=== PATIENT | female | born 1945 | race Caucasian/White ===

== ENCOUNTER 2019-10-17 14:01 | Inpatient (IN) | payer MEDICARE, OTHER ==
[2019-10-17] MEDS ORDERED: Sodium Chloride 0.9% 1000 ML 1,000 ML IV STA (14:16)
[2019-10-17] MEDS ORDERED: Hydromorphone 1 mg/ml Ampule IV ONE (14:16)
[2019-10-17] MEDS ORDERED: Zofran 4 MG/2 ML VIAL IV ONE (14:16)
--- NOTE | 2019-10-17 14:16 | ERPHSYRPT ---
- History of Present Illness Time Seen by Provider: 10/17/19 14:12 Historian: patient, EMS Exam Limitations: no limitations Patient Subjective Stated Complaint: PT states "My stomach hurt last night and I vomited a few times. I do not hurt much now except when you pushed on it." Triage Nursing Assessment: Pt presented alert and oriented X 3, skin pwd. Pt able to speak in clear full sentences pt in no apaprent respiratory distress. Pt is tender in the right upper and right lower quadrant. Physician History: This is a 74-year-old diabetic obese white female with history of hypertension who is a patient of Dr. Barrios and presents to the emergency department via EMS with abdominal pain that began last night and associated multiple episodes of vomiting earlier today. Patient currently says that the pain is not bad unless you push on her abdomen. Patient has had a cholecystectomy and an appendectomy in the past. Her tubes ovaries and uterus are still in place per her report. Patient denies chest pain and she denies shortness of breath Timing/Duration: yesterday Activities at Onset: none Quality: sharpness, stabbing Abdominal Pain Onset Location: RUQ, RLQ Pain Radiation: no radiation Severity of Pain-Max: moderate Severity of Pain-Current: mild (But worse when you push on her abdomen) Modifying Factors: Improves With: palpation, vomiting (Worsens) Associated Symptoms: loss of appetite, nausea, vomiting, No chest pain, No diarrhea, No fever/chills, No shortness of breath Previous symptoms: no prior history Allergies/Adverse Reactions: No Known Drug Allergies Allergy (Verified 10/17/19 14:10) Home Medications: Amlodipine Besylate [Norvasc] 10 mg PO DAILY 10/17/19 [History] Losartan/Hydrochlorothiazide [Losartan-Hctz 50-12.5 mg Tab] 1 each PO DAILY 10/17/19 [History] Metformin HCl 500 mg [Glucophage 500 MG] 500 mg PO BIDWM 10/17/19 [History] Hx Tetanus, Diphtheria Vaccination/Date Given: No Hx Influenza Vaccination/Date Given: Yes Hx Pneumococcal Vaccination/Date Given: Yes Immunizations Up to Date: Yes Travel Risk - International Travel Have you traveled outside of the country in past 3 weeks: No - Coronavirus Screening Are you exhibiting any of the following symptoms?: No Close contact with a COVID-19 positive Pt in past 14-21 Days: No - Review of Systems Constitutional: No Symptoms Eyes: No Symptoms Ears, Nose, & Throat: No Symptoms Respiratory: No Symptoms Cardiac: No Symptoms Abdominal/Gastrointestinal: Abdominal Pain, Nausea, Vomiting Genitourinary Symptoms: No Symptoms Musculoskeletal: No Symptoms Skin: No Symptoms Neurological: No Symptoms Psychological: No Symptoms Endocrine: No Symptoms Hematologic/Lymphatic: No Symptoms Immunological/Allergic: No Symptoms All Other Systems: Reviewed and Negative - Past Medical History Pertinent Past Medical History: Yes Neurological History: No Pertinent History ENT History: No Pertinent History Cardiac History: No Pertinent History Respiratory History: No Pertinent History Endocrine Medical History: Diabetes Type II Musculoskeletal History: Arthritis GI Medical History: Gallbladder Disease History: No Pertinent History Psycho-Social History: No Pertinent History Female Reproductive Disorders: No Pertinent History - Past Surgical History Past Surgical History: Yes Neuro Surgical History: No Pertinent History Cardiac: No Pertinent History Respiratory: No Pertinent History Gastrointestinal: Appendectomy, Cholecystectomy Genitourinary: No Pertinent History Musculoskeletal: No Pertinent History Female Surgical History: No Pertinent History Other Surgical History: elizabeth. appi. neck - Social History Smoking Status: Former smoker Exposure to second hand smoke: Yes Drug Use: none Patient Lives Alone: No - Female History Hx Now: No - Nursing Vital Signs Nursing Vital Signs: Initial Vital Signs Temperature 98.3 F 10/17/19 14:02 Pulse Rate 79 10/17/19 14:02 Respiratory Rate 20 10/17/19 14:02 Blood Pressure 159/80 10/17/19 14:02 O2 Sat by Pulse Oximetry 97 10/17/19 14:02 Pain Scale Pain Intensity 0 - Physical Exam General Appearance: mild distress, alert, anxiety, obese Eye Exam: PERRL/EOMI, eyes nml inspection Ears, Nose, Throat Exam: normal ENT inspection, moist mucous membranes Neck Exam: normal inspection, non-tender, supple, full range of motion Respiratory Exam: normal breath sounds, lungs clear, airway intact, No chest tenderness, No respiratory distress Cardiovascular Exam: regular rate/rhythm, normal heart sounds, normal peripheral pulses Gastrointestinal/Abdomen Exam: soft, normal bowel sounds, tenderness (Right side of her abdomen), guarding, No rebound Pelvic Exam: not done Rectal Exam: not done Back Exam: normal inspection, normal range of motion, No CVA tenderness, No vertebral tenderness Extremity Exam: normal inspection, normal range of motion, pelvis stable Neurologic Exam: alert, oriented x 3, cooperative, manager qa II-XII nml as tested Skin Exam: normal color, warm, dry Lymphatic Exam: No adenopathy SpO2 Interpretation: normal SpO2: 97 O2 Delivery: Room Air - Course Nursing assessment & vital signs reviewed: Yes EKG Interpreted by Me: RATE (76), Sinus Rhythm, Left Angora Deviation, NORMAL INTERVALS, NORMAL QRS Ordered Tests: Active Orders 24 hr Category Date Time Status EKG-ER Only STAT Care 10/17/19 14:16 Active IV Insertion STAT Care 10/17/19 14:16 Active ABDOMEN AND PELVIS W/0 CONTRAS [CT] Stat Exams 10/17/19 14:17 Completed AMYLASE Stat Lab 10/17/19 14:20 Completed CBC W DIFF Stat Lab 10/17/19 14:20 Completed CMP Stat Lab 10/17/19 14:20 Completed CULTURE,URINE Stat Lab 10/17/19 15:41 Received LIPASE Stat Lab 10/17/19 14:20 Completed Lactic Acid Stat Lab 10/17/19 14:48 Completed Lactic Acid Stat Lab 10/17/19 16:52 Received TROPONIN Q3H Lab 10/17/19 14:20 Completed TROPONIN Q3H Lab 10/17/19 17:30 Ordered TROPONIN Q3H Lab 10/17/19 20:30 Ordered TROPONIN Q3H Lab 10/17/19 23:30 Ordered TROPONIN Q3H Lab 10/18/19 02:30 Ordered UA W/RFX UR CULTURE Stat Lab 10/17/19 15:41 Completed Transfer Order Routine Transfer 10/17/19 Ordered Medication Summary Generic Name Dose Route Start Last Admin Trade Name Freq PRN Reason Stop Dose Admin Ceftriaxone Sodium/Dextrose 1 g in 50 mls @ 100 mls/hr 10/17/19 17:07 Rocephin 1 Gm-D5w 50 Ml Bag IV 10/17/19 17:36 STAT STA Discontinued Medications Generic Name Dose Route Start Last Admin Trade Name Freq PRN Reason Stop Dose Admin Hydromorphone HCl 0.5 mg 10/17/19 14:16 10/17/19 14:38 Hydromorphone 1 Mg/Ml Ampule IV 10/17/19 14:17 0.5 mg STAT ONE Administration Hydromorphone HCl Confirm 10/17/19 14:37 Hydromorphone 1 Mg/Ml Ampule Administered 10/17/19 14:38 Dose 1 mg .ROUTE .STK-MED ONE Sodium Chloride 1,000 mls @ 999 mls/hr 10/17/19 14:16 10/17/19 16:22 Sodium Chloride 0.9% 1000 Ml IV 10/17/19 15:16 Infused .Q1H1M STA Infusion Sodium Chloride Confirm 10/17/19 14:37 Sodium Chloride 0.9% 1000 Ml Administered 10/17/19 14:38 Dose 1,000 mls @ ud .ROUTE .STK-MED ONE Sodium Chloride Confirm 10/17/19 16:52 Sodium Chloride 0.9% 1000 Ml Administered 10/17/19 16:53 Dose 1,000 mls @ ud .ROUTE .STK-MED ONE Ondansetron HCl 4 mg 10/17/19 14:16 10/17/19 14:38 Zofran 4 Mg/2 Ml Vial IV 10/17/19 14:17 4 mg STAT ONE Administration Ondansetron HCl Confirm 10/17/19 14:36 Zofran 4 Mg/2 Ml Vial Administered 10/17/19 14:37 Dose 4 mg .ROUTE .STK-MED ONE Lab/Rad Data: Laboratory Result Diagrams 10/17/19 14:20 10/17/19 14:20 Laboratory Results 10/17/19 10/17/19 10/17/19 Range/Units 15:41 14:48 14:20 WBC (4.0-10.5) K/mm3 RBC (4.1-5.4) M/mm3 Hgb (12.0-16.0) gm/dl Hct (35-47) % MCV (78-100) fl MCH (26-32) pg MCHC (32-36) g/dl RDW (11.5-14.0) % Plt Count (150-450) K/mm3 MPV (7.5-11.0) fl Gran % (36.0-66.0) % Eos # (Auto) (0-0.5) Absolute Lymphs (auto) (1.0-4.6) Absolute Monos (auto) (0.0-1.3) Lymphocytes % (24.0-44.0) % Monocytes % (0.0-12.0) % Eosinophils % (0.00-5.0) % Basophils % (0.0-0.4) % Absolute Granulocytes (1.4-6.9) Basophils # (0-0.4) Sodium (137-145) mmol/L Potassium (3.5-5.1) mmol/L Chloride (98-107) mmol/L Carbon Dioxide (22-30) mmol/L Anion Gap (5-15) MEQ/L BUN (7-17) mg/dL Creatinine (0.52-1.04) mg/dL Estimated GFR ML/MIN Glucose (74-106) mg/dL Lactic Acid 2.7 H (0.4-2.0) Calcium (8.4-10.2) mg/dL Total Bilirubin (0.2-1.3) mg/dL AST (14-36) U/L ALT (0-35) U/L Alkaline Phosphatase (38-126) U/L Troponin I < 0.012 (0.000-0.034) ng/mL Serum Total Protein (6.3-8.2) g/dL Albumin (3.5-5.0) g/dL Amylase (30-110) U/L Lipase (23-300) U/L Urine Color POPEYE (YELLOW) Urine Appearance SLIGHTLY CLOUDY (CLEAR) Urine pH 6.0 (5-6) Ur Specific [place] 1.021 (1.005-1.025) Urine Protein NEGATIVE (Negative) Urine Ketones SMALL (NEGATIVE) Urine Blood NEGATIVE (0-5) Bear/ul Urine Nitrite POSITIVE (NEGATIVE) Urine Bilirubin NEGATIVE (NEGATIVE) Urine Urobilinogen 2 (0-1) mg/dL Ur Leukocyte Esterase TRACE (NEGATIVE) Urine WBC (Auto) 6-10 (0-5) /HPF Urine RBC (Auto) 0-2 (0-2) /HPF U Epithel Cells (Auto) RARE (FEW) /HPF Urine Bacteria (Auto) PACKED (NEGATIVE) /HPF Urine Mucus (Auto) MANY (NEGATIVE) /HPF Urine Culture Reflexed YES (NO) Urine Glucose NEGATIVE (NEGATIVE) mg/dL Slides for Path Review 10/17/19 10/17/19 Range/Units 14:20 14:20 WBC 12.1 H (4.0-10.5) K/mm3 RBC 5.76 H (4.1-5.4) M/mm3 Hgb 16.6 H (12.0-16.0) gm/dl Hct 49.4 H (35-47) % MCV 85.8 (78-100) fl MCH 28.8 (26-32) pg MCHC 33.6 (32-36) g/dl RDW 14.8 H (11.5-14.0) % Plt Count 342 (150-450) K/mm3 MPV 11.4 H (7.5-11.0) fl Gran % 93.0 H (36.0-66.0) % Eos # (Auto) 0.02 (0-0.5) Absolute Lymphs (auto) 0.41 L (1.0-4.6) Absolute Monos (auto) 0.36 (0.0-1.3) Lymphocytes % 3.4 L (24.0-44.0) % Monocytes % 3.0 (0.0-12.0) % Eosinophils % 0.2 (0.00-5.0) % Basophils % 0.4 (0.0-0.4) % Absolute Granulocytes 11.22 H (1.4-6.9) Basophils # 0.05 (0-0.4) Sodium 139 (137-145) mmol/L Potassium 4.0 (3.5-5.1) mmol/L Chloride 104 (98-107) mmol/L Carbon Dioxide 25 (22-30) mmol/L Anion Gap 14.8 (5-15) MEQ/L BUN 18 H (7-17) mg/dL Creatinine 0.66 (0.52-1.04) mg/dL Estimated GFR > 60.0 ML/MIN Glucose 140 H (74-106) mg/dL Lactic Acid (0.4-2.0) Calcium 10.6 H (8.4-10.2) mg/dL Total Bilirubin 1.30 (0.2-1.3) mg/dL AST 30 (14-36) U/L ALT 16 (0-35) U/L Alkaline Phosphatase 77 (38-126) U/L Troponin I (0.000-0.034) ng/mL Serum Total Protein 7.3 (6.3-8.2) g/dL Albumin 4.3 (3.5-5.0) g/dL Amylase 121 H (30-110) U/L Lipase 109 (23-300) U/L Urine Color (YELLOW) Urine Appearance (CLEAR) Urine pH (5-6) Ur Specific [place] (1.005-1.025) Urine Protein (Negative) Urine Ketones (NEGATIVE) Urine Blood (0-5) Bear/ul Urine Nitrite (NEGATIVE) Urine Bilirubin (NEGATIVE) Urine Urobilinogen (0-1) mg/dL Ur Leukocyte Esterase (NEGATIVE) Urine WBC (Auto) (0-5) /HPF Urine RBC (Auto) (0-2) /HPF U Epithel Cells (Auto) (FEW) /HPF Urine Bacteria (Auto) (NEGATIVE) /HPF Urine Mucus (Auto) (NEGATIVE) /HPF Urine Culture Reflexed (NO) Urine Glucose (NEGATIVE) mg/dL Slides for Path Review YES - Progress Progress: improved, pain not gone completely, re-examined Progress Note: 10/17/19 15:17 CAT scan of the abdomen and pelvis suspects a distal small bowel bezoar producing partial obstruction. It measures 4 cm x 7 cm. In addition there is a well-circumscribed heterogeneous mass with chunky calcifications abutting the left lobe of the liver. It measures 3 cm x 4.9 cm x 4.9 cm. 10/17/19 17:[address] Tripp, who is covering for Dr. Quigley. I reviewed the patient history, condition, EKG results, laboratory results, and results of the CAT scan. The patient has both a urinary tract infection and a partial distal small bowel obstruction. Patient will be admitted into the hospital and given IV hydration, iv antibiotics, pain control, nausea control and obtain a general surgical consultation. Discussed with : Zack Counseled pt/family regarding: lab results, diagnosis, rad results - Departure Departure Disposition: In-patient Admission Clinical Impression: Small bowel obstruction, partial, UTI (urinary tract infection) Condition: Stable Critical Care Time: No Referrals: JONAH CANTOR [Primary Care Provider] -
[2019-10-17] MEDS ORDERED: Zofran 4 MG/2 ML VIAL ONE (14:36)
[2019-10-17] MEDS ORDERED: Hydromorphone 1 mg/ml Ampule ONE (14:37)
[2019-10-17] MEDS ORDERED: Sodium Chloride 0.9% 1000 ML 0 ML ONE (14:37)
[2019-10-17 14:41] LABS: Absolute Neutrophil Ct (ANC) 11.22 (1.4-6.9); BASOPHIL % 0.4 % (0.0-0.4); Basophil (Absolute #) 0.05 (0-0.4); Eosinophil % 0.2 % (0.00-5.0); Eosinophil (Absolute #) 0.02 (0-0.5); Hematocrit 49.4 % (35-47); Hemoglobin 16.6 gm/dl (12.0-16.0); Lymphocyte (Absolute #) 0.41 (1.0-4.6); Lymphocytes % 3.4 % (24.0-44.0); Mean Cell Volume 85.8 fl (78-100); Mean Corpuscular Hemoglobin 28.8 pg (26-32); Mean Corpuscular Hgb Concent. 33.6 g/dl (32-36); Mean Platelet Volume 11.4 fl (7.5-11.0); Monocyte (Absolute #) 0.36 (0.0-1.3); Platelet Count 342 K/mm3 (150-450); Red Blood Count 5.76 M/mm3 (4.1-5.4); Red Cell Distribution Width 14.8 % (11.5-14.0); White Blood Count 12.1 K/mm3 (4.0-10.5)
[2019-10-17 15:04] LABS: Slide Review 1 YES
--- NOTE | 2019-10-17 15:07 | XRAY ---
Indication: Right lower quadrant pain and nausea. Multiple contiguous axial images obtained through the abdomen and pelvis without contrast as ordered. Comparison: None Lung bases demonstrates minimal bibasilar atelectasis/scarring. Also 8 mm posterior right lower lobe indeterminant noncalcified nodule. No infiltrate or effusion. Heart is not enlarged. Moderate-sized hiatal hernia with fluid distended partial intrathoracic stomach. Noncontrasted stomach and bowel loops are mildly fluid distended. Duodenal and jejunal bowel loops are distended up to 3 cm to the level of the pelvic inlet where there is a intraluminal mass, bezoar in appearance measuring at least 4 x 7 cm in greatest axial dimension. More distal ileal bowel loops are normal in caliber and colon demonstrates normal bowel gas. Above findings favor partial distal small bowel obstruction. No free fluid/air. Minimal sigmoid diverticulosis. Appendectomy and cholecystectomy reported. There is a well-circumscribed heterogeneous mass with chunky calcifications immediately abutting the left lobe of the liver inferiorly measuring 3.4 x 4.9 x 4.9 cm of uncertain etiology. Spleen is enlarged measuring 13.5 cm. Nonobstructing punctate left renal calculus. Small fundal calcified uterine fibroids, largest 8mm. Remaining liver, pancreas, spleen, adrenal glands, kidneys, ureters, bladder, and uterus appear unremarkable for noncontrast exam. Mild scattered aortoiliac calcifications without AAA. Osseous structures demonstrate mild/moderate degenerative changes throughout the thoracolumbar spine and moderate levorotoscoliosis centered at L3-L4. Impression: 1. Suspect distal small bowel bezoar producing partial obstruction. 2. Hiatal hernia with fluid filled partial intrathoracic stomach. 3. Indeterminant heterogeneous mass with chunky calcifications abutting the left lobe of the liver as detailed. Doubt hepatic in etiology. 4. Indeterminate right lower lobe noncalcified pulmonary nodule. 5. Incidental splenomegaly, nonobstructing left renal micro-calculus, sigmoid diverticulosis, calcified uterine fibroids, and chronic bony findings.
[2019-10-17 15:32] LABS: ALBUMIN 4.3 g/dL (3.5-5.0); ALKALINE PHOSPHATASE 77 U/L (38-126); AMYLASE 121 U/L (30-110); ANION GAP 14.8 MEQ/L (5-15); BLOOD UREA NITROGEN 18 mg/dL (7-17); CHLORIDE 104 mmol/L (98-107); Calcium 10.6 mg/dL (8.4-10.2); Carbon Dioxide 25 mmol/L (22-30); Creatinine 1 0.66 mg/dL (0.52-1.04); Glucose 140 mg/dL (74-106); LIPASE 109 U/L (23-300); SGOT/AST 30 U/L (14-36); SGPT/ALT 16 U/L (0-35); SODIUM 139 mmol/L (137-145); Total Protein 7.3 g/dL (6.3-8.2)
[2019-10-17 16:31] LABS: Appearance SLIGHTLY CLOUDY (CLEAR); Bacteria PACKED /HPF (NEGATIVE); Bilirubin NEGATIVE (NEGATIVE); Blood NEGATIVE Ery/ul (0-5); Epithelial Cells RARE /HPF (FEW); Glucose NEGATIVE (NEGATIVE); Ketones SMALL (NEGATIVE); Leukocyte Esterase TRACE (NEGATIVE); Mucus MANY /HPF (NEGATIVE); Nitrite POSITIVE (NEGATIVE); Protein,Urine Dip NEGATIVE (Negative); RBC 0-2 /HPF (0-2); Specific Gravity 1.021 (1.005-1.025); Urobilinogen 2 mg/dL (0-1)
[2019-10-17] MEDS ORDERED: Sodium Chloride 0.9% 1000 ML 1,000 ML ONE (16:52)
[2019-10-17] MEDS ORDERED: ROCEPHIN 1 Gm-D5w 50 ml Bag** 1 G/50 ML IVPB IV STA (17:07)
[2019-10-17] MEDS ORDERED: ROCEPHIN 1 Gm-D5w 50 ml Bag** 1 G/50 ML IVPB IV ONE (17:18)
[2019-10-17] MEDS ORDERED: FEVERALL 650 MG PR PRN (18:13)
[2019-10-17] MEDS: Zofran 4 MG/2 ML VIAL IV PRN (19:53)
[2019-10-17] MEDS: DILAUDID 2 MG INJECTION IV PRN (19:53)
[2019-10-17] MEDS: Sodium Chloride 0.9% 1000 ML 1,000 ML IV SCH (19:55)
[2019-10-18] MEDS: DILAUDID 2 MG INJECTION IV PRN (01:17)
[2019-10-18 04:44] LABS: Absolute Neutrophil Ct (ANC) 10.94 (1.4-6.9); BASOPHIL % 0.6 % (0.0-0.4); Basophil (Absolute #) 0.07 (0-0.4); Eosinophil % 0.3 % (0.00-5.0); Eosinophil (Absolute #) 0.04 (0-0.5); Hemoglobin 13.6 gm/dl (12.0-16.0); Lymphocyte (Absolute #) 0.89 (1.0-4.6); Lymphocytes % 7.1 % (24.0-44.0); Mean Cell Volume 88.2 fl (78-100); Mean Corpuscular Hemoglobin 28.6 pg (26-32); Mean Corpuscular Hgb Concent. 32.4 g/dl (32-36); Mean Platelet Volume 10.3 fl (7.5-11.0); Monocyte (Absolute #) 0.67 (0.0-1.3); Monocytes % 5.3 % (0.0-12.0); Neutrophil % 86.7 % (36.0-66.0); Platelet Count 378 K/mm3 (150-450); Red Blood Count 4.76 M/mm3 (4.1-5.4); Red Cell Distribution Width 14.9 % (11.5-14.0); White Blood Count 12.6 K/mm3 (4.0-10.5)
[2019-10-18] MEDS: Sodium Chloride 0.9% 1000 ML 1,000 ML IV SCH ×2 (04:56→16:56)
[2019-10-18 05:06] LABS: ALKALINE PHOSPHATASE 52 U/L (38-126); ANION GAP 7.9 MEQ/L (5-15); BLOOD UREA NITROGEN 17 mg/dL (7-17); CHLORIDE 109 mmol/L (98-107); Calcium 8.9 mg/dL (8.4-10.2); Carbon Dioxide 25 mmol/L (22-30); Creatinine 1 0.67 mg/dL (0.52-1.04); Glucose 141 mg/dL (74-106); Potassium 4.1 mmol/L (3.5-5.1); SGOT/AST 22 U/L (14-36); SGPT/ALT 17 U/L (0-35); SODIUM 138 mmol/L (137-145); Total Protein 5.6 g/dL (6.3-8.2)
--- NOTE | 2019-10-18 06:04 | PCM.HP ---
History of Present Illness - Chief Complaint Chief Complaint: Partial small bowel obstruction Date: 10/18/19 History of Present Illness: is a 74 year old female that was admitted from the ER yesterday for partial small bowel obstruction UTI and lesion near liver of unknown etiology. Patient reports that on she was eating her normal diet with no changes in appetite or bowel habits. Patient reports on mon after she ate her dinner of chicken and vegetables, she started having some abdominal discomfort. Patient reports that when she woke up yesterday morning she had no appetite at all. She started to experience abdominal pain and multiple episodes of vomiting. Patient denies any diarrhea or constipation at that time. She denies any hx of bowel surgery. She denies any fevers or urinary symptoms. She reports that she still has pain and still does not have much of an appetite. She has never had these type of symptoms before. When discussing patient with ER doctor her reported that patient was not currently vomiting and no NG tube was placed. - Review of Systems Constitutional: No Fever, No Chills, No Fatigue Eyes: No Symptoms Ears, Nose, & Throat: No Symptoms Respiratory: No Cough, No Short Of Breath, No Wheezing Cardiac: No Chest Pain, No Edema Abdominal/Gastrointestinal: Abdominal Pain, Nausea, Vomiting, Appetite Changes, No Diarrhea, No Constipation Genitourinary Symptoms: No Dysuria, No Hematuria Musculoskeletal: No Symptoms Skin: No Symptoms Neurological: No Symptoms Psychological: No Alcohol Abuse, No Drug Abuse, No Anxiety, No Depression Hematologic/Lymphatic: No Anemia Medications & Allergies Home Medications: Home Medication List Amlodipine Besylate [Norvasc] 5 mg PO DAILY 10/17/19 [History Confirmed 10/17/19] Aspirin EC 81 mg [Ecotrin 81 mg] 81 mg PO DAILY 10/17/19 [History Confirmed 10/17/19] Losartan/Hydrochlorothiazide [Losartan-Hctz 100-12.5 mg Tab] 1 each PO DAILY 10/17/19 [History Confirmed 10/17/19] Metformin HCl 500 mg [Glucophage 500 MG] 500 mg PO BIDWM 10/17/19 [History Confirmed 10/17/19] [place]-3 Fatty Acids [[place]-3] 1,000 mg PO DAILY 10/17/19 [History Confirmed 10/17/19] Allergies/Adverse Reactions: Allergies Allergy/AdvReac Type Severity Reaction Status Date / Time No Known Drug Allergies Allergy Verified 10/17/19 14:10 - Past Medical History Past Medical History: Yes Neurological History: No Pertinent History ENT History: No Pertinent History Cardiac History: No Pertinent History Respiratory History: No Pertinent History Endocrine Medical History: Diabetes Type II Musculoskelatal History: Arthritis GI Medical History: Gallbladder Disease History: No Pertinent History Pyscho-Social History: No Pertinent History Reproductive Disorders: No Pertinent History - Female History Are you now?: No - Past Surgical History Past Surgical History: Yes Neuro Surgical History: No Pertinent History Cardiac History: No Pertinent History Respiratory Surgery: No Pertinent History GI Surgical History: Appendectomy, Cholecystectomy Genitourinary Surgical Hx: No Pertinent History Musculskeletal Surgical Hx: No Pertinent History Female Surgical History: No Pertinent History Other Surgical History: elizabeth. appi. neck PARATHYROID REMOVED - Social History Smoking Status: Former smoker Exposure to second hand smoke: No Alcohol: None Drug Use: none - Physical Exam Vital Signs: Vital Signs - 24 hr Temp Pulse Resp BP Pulse Ox 10/18/19 04:53 99.2 F 84 18 136/84 96 10/17/19 21:53 98.9 F 78 149/67 93 L 10/17/19 19:27 93 L 10/17/19 19:22 93 L 10/17/19 18:12 98.9 F 78 20 149/67 93 L 10/17/19 17:53 98.9 F 78 149/67 93 L 10/17/19 17:34 70 18 172/87 94 L 10/17/19 17:15 97 10/17/19 16:23 97.8 F 85 18 151/79 97 10/17/19 15:05 98.3 F 79 18 161/75 96 10/17/19 14:02 98.3 F 79 20 159/80 97 General Appearance: no apparent distress, alert, No anxiety Neurologic Exam: alert, oriented x 3, cooperative, normal mood/affect Eye Exam: No scleral icterus, No pale conjunctivae Ears, Nose, Throat Exam: moist mucous membranes Neck Exam: normal inspection Respiratory Exam: normal breath sounds, lungs clear, No chest tenderness, No respiratory distress, No diminished breath sounds, No wheezing Cardiovascular Exam: regular rate/rhythm, murmur (Aortic stenosis sees Dr Diane Dockery) Gastrointestinal/Abdomen Exam: soft, tenderness, mass, other (Patient has hypoactive bowel sounds. Patient has a 2-3 area that is firm mid abdomen below epigastric area and above umbilicus), No normal bowel sounds, No distention Pelvic Exam: not done Rectal Exam: not done Extremity Exam: normal inspection Skin Exam: normal color, warm, dry, No rash Results - Labs Lab/Micro Results: Lab Results-Last 24 Hours 10/17/19 10/17/19 10/17/19 Range/Units 14:20 14:20 14:20 WBC 12.1 H (4.0-10.5) K/mm3 RBC 5.76 H (4.1-5.4) M/mm3 Hgb 16.6 H (12.0-16.0) gm/dl Hct 49.4 H (35-47) % MCV 85.8 (78-100) fl MCH 28.8 (26-32) pg MCHC 33.6 (32-36) g/dl RDW 14.8 H (11.5-14.0) % Plt Count 342 (150-450) K/mm3 MPV 11.4 H (7.5-11.0) fl Gran % 93.0 H (36.0-66.0) % Eos # (Auto) 0.02 (0-0.5) Absolute Lymphs (auto) 0.41 L (1.0-4.6) Absolute Monos (auto) 0.36 (0.0-1.3) Lymphocytes % 3.4 L (24.0-44.0) % Monocytes % 3.0 (0.0-12.0) % Eosinophils % 0.2 (0.00-5.0) % Basophils % 0.4 (0.0-0.4) % Absolute Granulocytes 11.22 H (1.4-6.9) Basophils # 0.05 (0-0.4) Sodium 139 (137-145) mmol/L Potassium 4.0 (3.5-5.1) mmol/L Chloride 104 (98-107) mmol/L Carbon Dioxide 25 (22-30) mmol/L Anion Gap 14.8 (5-15) MEQ/L BUN 18 H (7-17) mg/dL Creatinine 0.66 (0.52-1.04) mg/dL Estimated GFR > 60.0 ML/MIN Glucose 140 H (74-106) mg/dL Lactic Acid (0.4-2.0) Calcium 10.6 H (8.4-10.2) mg/dL Total Bilirubin 1.30 (0.2-1.3) mg/dL AST 30 (14-36) U/L ALT 16 (0-35) U/L Alkaline Phosphatase 77 (38-126) U/L Troponin I < 0.012 (0.000-0.034) ng/mL Serum Total Protein 7.3 (6.3-8.2) g/dL Albumin 4.3 (3.5-5.0) g/dL Amylase 121 H (30-110) U/L Lipase 109 (23-300) U/L Urine Color (YELLOW) Urine Appearance (CLEAR) Urine pH (5-6) Ur Specific [place] (1.005-1.025) Urine Protein (Negative) Urine Ketones (NEGATIVE) Urine Blood (0-5) Bear/ul Urine Nitrite (NEGATIVE) Urine Bilirubin (NEGATIVE) Urine Urobilinogen (0-1) mg/dL Ur Leukocyte Esterase (NEGATIVE) Urine WBC (Auto) (0-5) /HPF Urine RBC (Auto) (0-2) /HPF U Epithel Cells (Auto) (FEW) /HPF Urine Bacteria (Auto) (NEGATIVE) /HPF Urine Mucus (Auto) (NEGATIVE) /HPF Urine Culture Reflexed (NO) Urine Glucose (NEGATIVE) mg/dL Slides for Path Review YES 10/17/19 10/17/19 10/17/19 Range/Units 14:48 15:41 16:52 WBC (4.0-10.5) K/mm3 RBC (4.1-5.4) M/mm3 Hgb (12.0-16.0) gm/dl Hct (35-47) % MCV (78-100) fl MCH (26-32) pg MCHC (32-36) g/dl RDW (11.5-14.0) % Plt Count (150-450) K/mm3 MPV (7.5-11.0) fl Gran % (36.0-66.0) % Eos # (Auto) (0-0.5) Absolute Lymphs (auto) (1.0-4.6) Absolute Monos (auto) (0.0-1.3) Lymphocytes % (24.0-44.0) % Monocytes % (0.0-12.0) % Eosinophils % (0.00-5.0) % Basophils % (0.0-0.4) % Absolute Granulocytes (1.4-6.9) Basophils # (0-0.4) Sodium (137-145) mmol/L Potassium (3.5-5.1) mmol/L Chloride (98-107) mmol/L Carbon Dioxide (22-30) mmol/L Anion Gap (5-15) MEQ/L BUN (7-17) mg/dL Creatinine (0.52-1.04) mg/dL Estimated GFR ML/MIN Glucose (74-106) mg/dL Lactic Acid 2.7 H 1.9 (0.4-2.0) Calcium (8.4-10.2) mg/dL Total Bilirubin (0.2-1.3) mg/dL AST (14-36) U/L ALT (0-35) U/L Alkaline Phosphatase (38-126) U/L Troponin I (0.000-0.034) ng/mL Serum Total Protein (6.3-8.2) g/dL Albumin (3.5-5.0) g/dL Amylase (30-110) U/L Lipase (23-300) U/L Urine Color POPEYE (YELLOW) Urine Appearance SLIGHTLY CLOUDY (CLEAR) Urine pH 6.0 (5-6) Ur Specific [place] 1.021 (1.005-1.025) Urine Protein NEGATIVE (Negative) Urine Ketones SMALL (NEGATIVE) Urine Blood NEGATIVE (0-5) Bear/ul Urine Nitrite POSITIVE (NEGATIVE) Urine Bilirubin NEGATIVE (NEGATIVE) Urine Urobilinogen 2 (0-1) mg/dL Ur Leukocyte Esterase TRACE (NEGATIVE) Urine WBC (Auto) 6-10 (0-5) /HPF Urine RBC (Auto) 0-2 (0-2) /HPF U Epithel Cells (Auto) RARE (FEW) /HPF Urine Bacteria (Auto) PACKED (NEGATIVE) /HPF Urine Mucus (Auto) MANY (NEGATIVE) /HPF Urine Culture Reflexed YES (NO) Urine Glucose NEGATIVE (NEGATIVE) mg/dL Slides for Path Review 10/17/19 10/17/19 10/18/19 Range/Units 18:05 20:55 00:10 WBC (4.0-10.5) K/mm3 RBC (4.1-5.4) M/mm3 Hgb (12.0-16.0) gm/dl Hct (35-47) % MCV (78-100) fl MCH (26-32) pg MCHC (32-36) g/dl RDW (11.5-14.0) % Plt Count (150-450) K/mm3 MPV (7.5-11.0) fl Gran % (36.0-66.0) % Eos # (Auto) (0-0.5) Absolute Lymphs (auto) (1.0-4.6) Absolute Monos (auto) (0.0-1.3) Lymphocytes % (24.0-44.0) % Monocytes % (0.0-12.0) % Eosinophils % (0.00-5.0) % Basophils % (0.0-0.4) % Absolute Granulocytes (1.4-6.9) Basophils # (0-0.4) Sodium (137-145) mmol/L Potassium (3.5-5.1) mmol/L Chloride (98-107) mmol/L Carbon Dioxide (22-30) mmol/L Anion Gap (5-15) MEQ/L BUN (7-17) mg/dL Creatinine (0.52-1.04) mg/dL Estimated GFR ML/MIN Glucose (74-106) mg/dL Lactic Acid (0.4-2.0) Calcium (8.4-10.2) mg/dL Total Bilirubin (0.2-1.3) mg/dL AST (14-36) U/L ALT (0-35) U/L Alkaline Phosphatase (38-126) U/L Troponin I < 0.012 < 0.012 < 0.012 (0.000-0.034) ng/mL Serum Total Protein (6.3-8.2) g/dL Albumin (3.5-5.0) g/dL Amylase (30-110) U/L Lipase (23-300) U/L Urine Color (YELLOW) Urine Appearance (CLEAR) Urine pH (5-6) Ur Specific [place] (1.005-1.025) Urine Protein (Negative) Urine Ketones (NEGATIVE) Urine Blood (0-5) Bear/ul Urine Nitrite (NEGATIVE) Urine Bilirubin (NEGATIVE) Urine Urobilinogen (0-1) mg/dL Ur Leukocyte Esterase (NEGATIVE) Urine WBC (Auto) (0-5) /HPF Urine RBC (Auto) (0-2) /HPF U Epithel Cells (Auto) (FEW) /HPF Urine Bacteria (Auto) (NEGATIVE) /HPF Urine Mucus (Auto) (NEGATIVE) /HPF Urine Culture Reflexed (NO) Urine Glucose (NEGATIVE) mg/dL Slides for Path Review 10/18/19 10/18/19 10/18/19 Range/Units 02:30 04:30 04:30 WBC 12.6 H (4.0-10.5) K/mm3 RBC 4.76 (4.1-5.4) M/mm3 Hgb 13.6 (12.0-16.0) gm/dl Hct 42.0 (35-47) % MCV 88.2 (78-100) fl MCH 28.6 (26-32) pg MCHC 32.4 (32-36) g/dl RDW 14.9 H (11.5-14.0) % Plt Count 378 (150-450) K/mm3 MPV 10.3 (7.5-11.0) fl Gran % 86.7 H (36.0-66.0) % Eos # (Auto) 0.04 (0-0.5) Absolute Lymphs (auto) 0.89 L (1.0-4.6) Absolute Monos (auto) 0.67 (0.0-1.3) Lymphocytes % 7.1 L (24.0-44.0) % Monocytes % 5.3 (0.0-12.0) % Eosinophils % 0.3 (0.00-5.0) % Basophils % 0.6 (0.0-0.4) % Absolute Granulocytes 10.94 H (1.4-6.9) Basophils # 0.07 (0-0.4) Sodium 138 (137-145) mmol/L Potassium 4.1 (3.5-5.1) mmol/L Chloride 109 H (98-107) mmol/L Carbon Dioxide 25 (22-30) mmol/L Anion Gap 7.9 (5-15) MEQ/L BUN 17 (7-17) mg/dL Creatinine 0.67 (0.52-1.04) mg/dL Estimated GFR > 60.0 ML/MIN Glucose 141 H (74-106) mg/dL Lactic Acid (0.4-2.0) Calcium 8.9 D (8.4-10.2) mg/dL Total Bilirubin 0.80 (0.2-1.3) mg/dL AST 22 (14-36) U/L ALT 17 (0-35) U/L Alkaline Phosphatase 52 (38-126) U/L Troponin I < 0.012 (0.000-0.034) ng/mL Serum Total Protein 5.6 L (6.3-8.2) g/dL Albumin 3.0 L (3.5-5.0) g/dL Amylase (30-110) U/L Lipase (23-300) U/L Urine Color (YELLOW) Urine Appearance (CLEAR) Urine pH (5-6) Ur Specific [place] (1.005-1.025) Urine Protein (Negative) Urine Ketones (NEGATIVE) Urine Blood (0-5) Bear/ul Urine Nitrite (NEGATIVE) Urine Bilirubin (NEGATIVE) Urine Urobilinogen (0-1) mg/dL Ur Leukocyte Esterase (NEGATIVE) Urine WBC (Auto) (0-5) /HPF Urine RBC (Auto) (0-2) /HPF U Epithel Cells (Auto) (FEW) /HPF Urine Bacteria (Auto) (NEGATIVE) /HPF Urine Mucus (Auto) (NEGATIVE) /HPF Urine Culture Reflexed (NO) Urine Glucose (NEGATIVE) mg/dL Slides for Path Review - Radiology Impressions Radiology Exams & Impressions: Radiology Procedures Category Date Time Status ABDOMEN AND PELVIS W/0 CONTRAS [CT] Stat Exams 10/17/19 14:17 Completed Assessment/Plan (1) Small bowel obstruction, partial Current Visit: Yes Status: Acute Assessment & Plan: Patient's CT scan showed a bezoar that was causing a partial small bowel obstruction. Patient was made NPO. General surgery was consulted will follow recs. No ng tube was placed as patient was not actively vomiting. If she starts to have vomiting NG will be placed. Will get IV zofran as needed. Will continue to manage pain as necessary. Code(s): K56.600 - PARTIAL INTESTINAL OBSTRUCTION, UNSPECIFIED TO CAUSE (2) UTI (urinary tract infection) Current Visit: Yes Status: Acute Assessment & Plan: Patient was also found to have UTI in ER. She was started on antibiotics. Culture is still pending. Will adjust antibiotics as necessary. Code(s): N39.0 - URINARY TRACT INFECTION, SITE NOT SPECIFIED (3) Aortic stenosis Current Visit: Yes Status: Acute Assessment & Plan: Patient follows with cardiologists for this. Code(s): I35.0 - NONRHEUMATIC AORTIC (VALVE) STENOSIS (4) HTN (hypertension) Current Visit: Yes Status: Acute Assessment & Plan: Patient has hx of htn. Will continue with routine medications and transition to IV if needed. Code(s): I10 - ESSENTIAL (PRIMARY) HYPERTENSION
[2019-10-18] MEDS ORDERED: ROCEPHIN 1 Gm-D5w 50 ml Bag** 1 G/50 ML IVPB IV SCH (10:00)
--- NOTE | 2019-10-18 12:22 | PCM.CONS ---
History of Present Illness - Reason for Consult Chief Complaint: Partial small bowel obstruction Requesting Provider: XIMENA TAVARES MD Consulting Provider: YANY ROBLES MD History of Present Illness: is a 74 year old female. hx limited due to patient memory. is not at bedside. pt oriented to person, place, date, somewhat to situation but states she "felt bad yesterday" but cannot answer ROS questions including na usea/emesis/abd pain. hx per chart review, d/w pt, RN, and primary MD Patient Subjective Stated Complaint: PT states "My stomach hurt last night and I vomited a few times. I do not hurt much now except when you pushed on it." Triage Nursing Assessment: Pt presented alert and oriented X 3, skin pwd. Pt able to speak in clear full sentences pt in no apaprent respiratory distress. Pt is tender in the right upper and right lower quadrant. Per RN since admission last night, refused NG, no n/v, no real abdominal pain. No bowel movement, unsure of flatus. tolerated PO contrast. Going to CT scan soon Per pt this am denies abdominal pain, n/v. Physician History: "This is a 74-year-old diabetic obese white female with history of hypertension who is a patient of Dr. Barrios and presents to the emergency department via EMS with abdominal pain that began last night and associated multiple episodes of vomiting earlier today. Patient currently says that the pain is not bad unless you push on her abdomen. Patient has had a cholecystectomy and an appendectomy in the past. Her tubes ovaries and uterus are still in place per her report. Patient denies chest pain and she denies shortness of breath Timing/Duration: yesterday Activities at Onset: none Quality: sharpness, stabbing Abdominal Pain Onset Location: RUQ, RLQ Pain Radiation: no radiation Severity of Pain-Max: moderate Severity of Pain-Current: mild (But worse when you push on her abdomen) Modifying Factors: Improves With: palpation, vomiting (Worsens) Associated Symptoms: loss of appetite, nausea, vomiting, No chest pain, No diarrhea, No fever/chills, No shortness of breath Previous symptoms: no prior history Allergies/Adverse Reactions: No Known Drug Allergies Allergy (Verified 10/17/19 14:10)" - Review of Systems Additional Findings: unable to obtain due to patient memory. Medications & Allergies Home Medications: Home Medication List Amlodipine Besylate [Norvasc] 5 mg PO DAILY 10/17/19 [History Confirmed 10/17/19] Aspirin EC 81 mg [Ecotrin 81 mg] 81 mg PO DAILY 10/17/19 [History Confirmed 10/17/19] Losartan/Hydrochlorothiazide [Losartan-Hctz 100-12.5 mg Tab] 1 each PO DAILY 10/17/19 [History Confirmed 10/17/19] Metformin HCl 500 mg [Glucophage 500 MG] 500 mg PO BIDWM 10/17/19 [History Confirmed 10/17/19] [place]-3 Fatty Acids [[place]-3] 1,000 mg PO DAILY 10/17/19 [History Confirmed 10/17/19] Allergies/Adverse Reactions: Allergies Allergy/AdvReac Type Severity Reaction Status Date / Time No Known Drug Allergies Allergy Verified 10/17/19 14:10 - Past Medical History Past Medical History: Yes Neurological History: No Pertinent History ENT History: No Pertinent History Cardiac History: No Pertinent History Respiratory History: No Pertinent History Endocrine Medical History: Diabetes Type II Musculoskelatal History: Arthritis GI Medical History: Gallbladder Disease History: No Pertinent History Pyscho-Social History: No Pertinent History Reproductive Disorders: No Pertinent History - Female History Are you now?: No - Past Surgical History Past Surgical History: Yes Neuro Surgical History: No Pertinent History Cardiac History: No Pertinent History Respiratory Surgery: No Pertinent History GI Surgical History: Appendectomy, Cholecystectomy Genitourinary Surgical Hx: No Pertinent History Musculskeletal Surgical Hx: No Pertinent History Female Surgical History: No Pertinent History Other Surgical History: open elizabeth. appy. neck PARATHYROID REMOVED - Social History Smoking Status: Former smoker Exposure to second hand smoke: No Alcohol: None Drug Use: none - Physical Exam Vital Signs: Vital Signs - 24 hr Temp Pulse Resp BP Pulse Ox 10/18/19 12:04 98.5 F 85 18 123/58 97 10/18/19 08:02 98.4 F 84 20 120/57 95 10/18/19 07:48 95 10/18/19 04:53 99.2 F 84 18 136/84 96 10/17/19 21:53 98.9 F 78 149/67 93 L 10/17/19 19:27 93 L 10/17/19 19:22 93 L 10/17/19 18:12 98.9 F 78 20 149/67 93 L 10/17/19 17:53 98.9 F 78 149/67 93 L 10/17/19 17:34 70 18 172/87 94 L 10/17/19 17:15 97 10/17/19 16:23 97.8 F 85 18 151/79 97 10/17/19 15:05 98.3 F 79 18 161/75 96 10/17/19 14:02 98.3 F 79 20 159/80 97 General Appearance: no apparent distress, alert Neurologic Exam: alert, oriented x 3 (somewhat orirented to situation. knows she's in the hospital, but doesn't remember much of what happened to bring her here.) Eye Exam: eyes nml inspection, No scleral icterus Neck Exam: normal inspection Respiratory Exam: No respiratory distress, No accessory muscle use Cardiovascular Exam: regular rate/rhythm Gastrointestinal/Abdomen Exam: soft, No tenderness, No distention, No mass, No guarding Pelvic Exam: not done Rectal Exam: not done Extremity Exam: normal inspection Skin Exam: normal color, warm, dry Results - Labs Lab/Micro Results: Lab Results-Last 24 Hours 10/17/19 10/17/19 10/17/19 Range/Units 14:20 14:20 14:20 WBC 12.1 H (4.0-10.5) K/mm3 RBC 5.76 H (4.1-5.4) M/mm3 Hgb 16.6 H (12.0-16.0) gm/dl Hct 49.4 H (35-47) % MCV 85.8 (78-100) fl MCH 28.8 (26-32) pg MCHC 33.6 (32-36) g/dl RDW 14.8 H (11.5-14.0) % Plt Count 342 (150-450) K/mm3 MPV 11.4 H (7.5-11.0) fl Gran % 93.0 H (36.0-66.0) % Eos # (Auto) 0.02 (0-0.5) Absolute Lymphs (auto) 0.41 L (1.0-4.6) Absolute Monos (auto) 0.36 (0.0-1.3) Lymphocytes % 3.4 L (24.0-44.0) % Monocytes % 3.0 (0.0-12.0) % Eosinophils % 0.2 (0.00-5.0) % Basophils % 0.4 (0.0-0.4) % Absolute Granulocytes 11.22 H (1.4-6.9) Basophils # 0.05 (0-0.4) Sodium 139 (137-145) mmol/L Potassium 4.0 (3.5-5.1) mmol/L Chloride 104 (98-107) mmol/L Carbon Dioxide 25 (22-30) mmol/L Anion Gap 14.8 (5-15) MEQ/L BUN 18 H (7-17) mg/dL Creatinine 0.66 (0.52-1.04) mg/dL Estimated GFR > 60.0 ML/MIN Glucose 140 H (74-106) mg/dL Lactic Acid (0.4-2.0) Calcium 10.6 H (8.4-10.2) mg/dL Total Bilirubin 1.30 (0.2-1.3) mg/dL AST 30 (14-36) U/L ALT 16 (0-35) U/L Alkaline Phosphatase 77 (38-126) U/L Troponin I < 0.012 (0.000-0.034) ng/mL Serum Total Protein 7.3 (6.3-8.2) g/dL Albumin 4.3 (3.5-5.0) g/dL Amylase 121 H (30-110) U/L Lipase 109 (23-300) U/L Urine Color (YELLOW) Urine Appearance (CLEAR) Urine pH (5-6) Ur Specific [place] (1.005-1.025) Urine Protein (Negative) Urine Ketones (NEGATIVE) Urine Blood (0-5) Bear/ul Urine Nitrite (NEGATIVE) Urine Bilirubin (NEGATIVE) Urine Urobilinogen (0-1) mg/dL Ur Leukocyte Esterase (NEGATIVE) Urine WBC (Auto) (0-5) /HPF Urine RBC (Auto) (0-2) /HPF U Epithel Cells (Auto) (FEW) /HPF Urine Bacteria (Auto) (NEGATIVE) /HPF Urine Mucus (Auto) (NEGATIVE) /HPF Urine Culture Reflexed (NO) Urine Glucose (NEGATIVE) mg/dL Slides for Path Review YES 10/17/19 10/17/19 10/17/19 Range/Units 14:48 15:41 16:52 WBC (4.0-10.5) K/mm3 RBC (4.1-5.4) M/mm3 Hgb (12.0-16.0) gm/dl Hct (35-47) % MCV (78-100) fl MCH (26-32) pg MCHC (32-36) g/dl RDW (11.5-14.0) % Plt Count (150-450) K/mm3 MPV (7.5-11.0) fl Gran % (36.0-66.0) % Eos # (Auto) (0-0.5) Absolute Lymphs (auto) (1.0-4.6) Absolute Monos (auto) (0.0-1.3) Lymphocytes % (24.0-44.0) % Monocytes % (0.0-12.0) % Eosinophils % (0.00-5.0) % Basophils % (0.0-0.4) % Absolute Granulocytes (1.4-6.9) Basophils # (0-0.4) Sodium (137-145) mmol/L Potassium (3.5-5.1) mmol/L Chloride (98-107) mmol/L Carbon Dioxide (22-30) mmol/L Anion Gap (5-15) MEQ/L BUN (7-17) mg/dL Creatinine (0.52-1.04) mg/dL Estimated GFR ML/MIN Glucose (74-106) mg/dL Lactic Acid 2.7 H 1.9 (0.4-2.0) Calcium (8.4-10.2) mg/dL Total Bilirubin (0.2-1.3) mg/dL AST (14-36) U/L ALT (0-35) U/L Alkaline Phosphatase (38-126) U/L Troponin I (0.000-0.034) ng/mL Serum Total Protein (6.3-8.2) g/dL Albumin (3.5-5.0) g/dL Amylase (30-110) U/L Lipase (23-300) U/L Urine Color POPEYE (YELLOW) Urine Appearance SLIGHTLY CLOUDY (CLEAR) Urine pH 6.0 (5-6) Ur Specific [place] 1.021 (1.005-1.025) Urine Protein NEGATIVE (Negative) Urine Ketones SMALL (NEGATIVE) Urine Blood NEGATIVE (0-5) Bear/ul Urine Nitrite POSITIVE (NEGATIVE) Urine Bilirubin NEGATIVE (NEGATIVE) Urine Urobilinogen 2 (0-1) mg/dL Ur Leukocyte Esterase TRACE (NEGATIVE) Urine WBC (Auto) 6-10 (0-5) /HPF Urine RBC (Auto) 0-2 (0-2) /HPF U Epithel Cells (Auto) RARE (FEW) /HPF Urine Bacteria (Auto) PACKED (NEGATIVE) /HPF Urine Mucus (Auto) MANY (NEGATIVE) /HPF Urine Culture Reflexed YES (NO) Urine Glucose NEGATIVE (NEGATIVE) mg/dL Slides for Path Review 10/17/19 10/17/19 10/18/19 Range/Units 18:05 20:55 00:10 WBC (4.0-10.5) K/mm3 RBC (4.1-5.4) M/mm3 Hgb (12.0-16.0) gm/dl Hct (35-47) % MCV (78-100) fl MCH (26-32) pg MCHC (32-36) g/dl RDW (11.5-14.0) % Plt Count (150-450) K/mm3 MPV (7.5-11.0) fl Gran % (36.0-66.0) % Eos # (Auto) (0-0.5) Absolute Lymphs (auto) (1.0-4.6) Absolute Monos (auto) (0.0-1.3) Lymphocytes % (24.0-44.0) % Monocytes % (0.0-12.0) % Eosinophils % (0.00-5.0) % Basophils % (0.0-0.4) % Absolute Granulocytes (1.4-6.9) Basophils # (0-0.4) Sodium (137-145) mmol/L Potassium (3.5-5.1) mmol/L Chloride (98-107) mmol/L Carbon Dioxide (22-30) mmol/L Anion Gap (5-15) MEQ/L BUN (7-17) mg/dL Creatinine (0.52-1.04) mg/dL Estimated GFR ML/MIN Glucose (74-106) mg/dL Lactic Acid (0.4-2.0) Calcium (8.4-10.2) mg/dL Total Bilirubin (0.2-1.3) mg/dL AST (14-36) U/L ALT (0-35) U/L Alkaline Phosphatase (38-126) U/L Troponin I < 0.012 < 0.012 < 0.012 (0.000-0.034) ng/mL Serum Total Protein (6.3-8.2) g/dL Albumin (3.5-5.0) g/dL Amylase (30-110) U/L Lipase (23-300) U/L Urine Color (YELLOW) Urine Appearance (CLEAR) Urine pH (5-6) Ur Specific [place] (1.005-1.025) Urine Protein (Negative) Urine Ketones (NEGATIVE) Urine Blood (0-5) Bear/ul Urine Nitrite (NEGATIVE) Urine Bilirubin (NEGATIVE) Urine Urobilinogen (0-1) mg/dL Ur Leukocyte Esterase (NEGATIVE) Urine WBC (Auto) (0-5) /HPF Urine RBC (Auto) (0-2) /HPF U Epithel Cells (Auto) (FEW) /HPF Urine Bacteria (Auto) (NEGATIVE) /HPF Urine Mucus (Auto) (NEGATIVE) /HPF Urine Culture Reflexed (NO) Urine Glucose (NEGATIVE) mg/dL Slides for Path Review 10/18/19 10/18/19 10/18/19 Range/Units 02:30 04:30 04:30 WBC 12.6 H (4.0-10.5) K/mm3 RBC 4.76 (4.1-5.4) M/mm3 Hgb 13.6 (12.0-16.0) gm/dl Hct 42.0 (35-47) % MCV 88.2 (78-100) fl MCH 28.6 (26-32) pg MCHC 32.4 (32-36) g/dl RDW 14.9 H (11.5-14.0) % Plt Count 378 (150-450) K/mm3 MPV 10.3 (7.5-11.0) fl Gran % 86.7 H (36.0-66.0) % Eos # (Auto) 0.04 (0-0.5) Absolute Lymphs (auto) 0.89 L (1.0-4.6) Absolute Monos (auto) 0.67 (0.0-1.3) Lymphocytes % 7.1 L (24.0-44.0) % Monocytes % 5.3 (0.0-12.0) % Eosinophils % 0.3 (0.00-5.0) % Basophils % 0.6 (0.0-0.4) % Absolute Granulocytes 10.94 H (1.4-6.9) Basophils # 0.07 (0-0.4) Sodium 138 (137-145) mmol/L Potassium 4.1 (3.5-5.1) mmol/L Chloride 109 H (98-107) mmol/L Carbon Dioxide 25 (22-30) mmol/L Anion Gap 7.9 (5-15) MEQ/L BUN 17 (7-17) mg/dL Creatinine 0.67 (0.52-1.04) mg/dL Estimated GFR > 60.0 ML/MIN Glucose 141 H (74-106) mg/dL Lactic Acid (0.4-2.0) Calcium 8.9 D (8.4-10.2) mg/dL Total Bilirubin 0.80 (0.2-1.3) mg/dL AST 22 (14-36) U/L ALT 17 (0-35) U/L Alkaline Phosphatase 52 (38-126) U/L Troponin I < 0.012 (0.000-0.034) ng/mL Serum Total Protein 5.6 L (6.3-8.2) g/dL Albumin 3.0 L (3.5-5.0) g/dL Amylase (30-110) U/L Lipase (23-300) U/L Urine Color (YELLOW) Urine Appearance (CLEAR) Urine pH (5-6) Ur Specific [place] (1.005-1.025) Urine Protein (Negative) Urine Ketones (NEGATIVE) Urine Blood (0-5) Bear/ul Urine Nitrite (NEGATIVE) Urine Bilirubin (NEGATIVE) Urine Urobilinogen (0-1) mg/dL Ur Leukocyte Esterase (NEGATIVE) Urine WBC (Auto) (0-5) /HPF Urine RBC (Auto) (0-2) /HPF U Epithel Cells (Auto) (FEW) /HPF Urine Bacteria (Auto) (NEGATIVE) /HPF Urine Mucus (Auto) (NEGATIVE) /HPF Urine Culture Reflexed (NO) Urine Glucose (NEGATIVE) mg/dL Slides for Path Review Microbiology 10/17/19 15:41 Urine Culture - Preliminary Clean Catch Midstream GRAM NEGATIVE ID AND SENSITIVITY PENDING - Radiology Impressions Radiology Exams & Impressions: Radiology Procedures Category Date Time Status ABDOMEN AND PELVIS W CONTRAST [CT] Stat Exams 10/18/19 08:14 Taken ABDOMEN AND PELVIS W/0 CONTRAS [CT] Stat Exams 10/17/19 14:17 Completed Assessment/Plan (1) Small bowel obstruction, partial Current Visit: Yes Status: Acute Assessment & Plan: 74yo female SBO, initial noncontrasted scan with ? bezoar transition. Also with heterogrenous perihepatic lesion. Admitted, refused NG. Tolerated contrast no emesis overnight. benign exam, labs. Repeat CT scan with PO and IV contrast. Discussed with my partner Christine Robles. Await CT scan results for surgical planning. No need for emergent surgery at this time but is likely to need surgery for bowel obstruction. Code(s): K56.600 - PARTIAL INTESTINAL OBSTRUCTION, UNSPECIFIED TO CAUSE
--- NOTE | 2019-10-18 12:28 | XRAY ---
Indication: Right lower quadrant pain. Nausea. Multiple contiguous axial images obtained through the abdomen and pelvis using 80 cc Isovue 370 contrast. Enteric contrast also used. Comparison: Noncontrast exam 1 day earlier. Lung bases demonstrates increasing mild dependent atelectasis with new tiny right effusion. Previous posterior right lower lobe subcentimeter noncalcified nodule not included in the [id number]. Heart is not enlarged. Again moderate size hiatal hernia with partial intrathoracic stomach. Noncontrasted stomach unremarkable. Contrasted small bowel loops slightly less distended today with now synchronous fluid leveling favoring ileus. Previous suspected distal small bowel bezoar has passed. Contrasted colon unremarkable with fecal debris in the sigmoid colon and rectum. New small perihepatic, tiny bilateral colic gutter, and tiny pelvic free fluid. No walled off fluid collection or free air. Dome of the right lobe of the liver demonstrates new 1 cm hepatic hemangioma not seen on previous noncontrasted exam. Stable 3.4 x 4.9 x 4.9 cm indeterminant heterogeneous mass with chunky calcifications abutting the left lobe of the liver. Stable 13.6 cm splenomegaly, tiny calcified uterine fibroids, appendectomy and cholecystectomy. Previous punctate left renal calculus not seen on today's contrasted exam. No hydronephrosis or hydroureter. Remaining liver, pancreas, spleen, adrenal glands, kidneys, ureters, bladder, and uterus appear unremarkable. Stable mild aortoiliac calcifications again without AAA or pathologic retroperitoneal lymphadenopathy. Impression: 1. Previous suspected distal small bowel bezoar has passed. Small bowel loops remain mildly distended with now synchronous fluid leveling favoring ileus. 2. New small abdominal and tiny pelvic free fluid of uncertain etiology. Also new tiny right lung base effusion. 3. New 1 m hepatic hemangioma not seen on previous noncontrasted exam. 4. Stable indeterminant heterogeneous mass with chunky calcifications adjacent to the left lobe of the liver. 5. Stable hiatal hernia, splenomegaly, and tiny calcified uterine fibroids.
[2019-10-18] MEDS: hydroDIURIL 25 MG PO SCH (14:48)
[2019-10-18] MEDS: NORVASC 5 MG PO SCH (14:49)
[2019-10-18] MEDS: Cozaar 50 MG PO SCH (14:49)
[2019-10-19] MEDS: DILAUDID 2 MG INJECTION IV PRN (02:34)
[2019-10-19] MEDS: Sodium Chloride 0.9% 1000 ML 1,000 ML IV SCH (02:40)
[2019-10-19] MEDS: Zofran 4 MG/2 ML VIAL IV PRN (02:44)
[2019-10-19 07:12] VITALS: BP 123/58; PULSE 68; O2SAT 98
[2019-10-19] MEDS: NORVASC 5 MG PO SCH (09:16)
[2019-10-19] MEDS: Cozaar 50 MG PO SCH (09:16)
[2019-10-19] MEDS: hydroDIURIL 25 MG PO SCH (09:17)
[2019-10-19] MEDS ORDERED: NON-FORMULARY ITEM (Losartan/Hydrochlorothiazide [Losartan-Hctz 100-12.5 Mg Tab] 1 EACH) PO SCH (10:00)
[2019-10-19] MEDS ORDERED: NON-FORMULARY ITEM (Amlodipine Besylate [Norvasc] 5 MG) PO SCH (10:00)
--- NOTE | 2019-10-19 10:39 | PCM.DS ---
Discharge Summary Date of Admission: 10/17/19 17:44 Date of Discharge: 10/19/2019 Admitting Physician: XIMENA TAVARES MD Consults: Consults on Case 10/17/19 18:13 Consult Surgery ROUTINE Primary Care Provider: JONAH CANTOR Allergies Allergies No Known Drug Allergies Allergy (Verified 10/17/19 14:10) Hospital Summary - Hospital Course Hospital Course: is a 74 year old female that was admitted from the ER yesterday for partial small bowel obstruction UTI and lesion near liver of unknown etiology. Patient reports that on she was eating her normal diet with no changes in appetite or bowel habits. Patient reports on mon after she ate her dinner of chicken and vegetables, she started having some abdominal discomfort. Patient reports that when she woke up yesterday morning she had no appetite at all. She started to experience abdominal pain and multiple episodes of vomiting. Patient denies any diarrhea or constipation at that time. She denies any hx of bowel surgery. She denies any fevers or urinary symptoms. She reports that she still has pain and still does not have much of an appetite. She has never had these type of symptoms before. When discussing patient with ER doctor her reported that patient was not currently vomiting and no NG tube was placed. Patient was admitted for observation. She was evaluated by surgery and a repeat CT scan was ordered. The suspected bezoar had passed on repeat scan. Patient was tolerated PO well and wanted to go home. She was stable to be discharged and follow up with PCP as outpatient - Vitals & Intake/Output Vital Signs: Vital Signs Temperature 98.4 F 10/19/19 07:00 Pulse Rate 68 10/19/19 07:00 Respiratory Rate 20 10/19/19 07:00 Blood Pressure 123/58 10/19/19 07:00 O2 Sat by Pulse Oximetry 98 10/19/19 07:00 Intake & Output: Intake & Output 10/16/19 10/17/19 10/18/19 10/19/19 11:59 11:59 11:59 11:59 Intake Total 0 5043 Output Total 850 3500 Balance -850 1543 Weight 107.1 kg 109 kg - Lab Result Diagrams: 10/18/19 04:30 10/18/19 04:30 Micro Results-Entire Visit: Microbiology 10/17/19 15:41 Urine Culture - Final Clean Catch Midstream Escherichia Coli - Radiology Exams Ordered Rad Exams-Entire Visit: Radiology Procedures Category Date Time Status ABDOMEN AND PELVIS W CONTRAST [CT] Stat Exams 10/18/19 08:14 Completed ABDOMEN AND PELVIS W/0 CONTRAS [CT] Stat Exams 10/17/19 14:17 Completed Discharge Exam General Appearance: no apparent distress Neurologic Exam: alert, oriented x 3, normal mood/affect, No disoriented, No confusion Ears, Nose, Throat Exam: moist mucous membranes Respiratory Exam: normal breath sounds, lungs clear, No diminished breath sounds, No wheezing Cardiovascular Exam: regular rate/rhythm, normal heart sounds, murmur, No friction rub, No gallop Gastrointestinal/Abdomen Exam: soft, normal bowel sounds, tenderness (mild epigastric), No distention, No mass Extremity Exam: normal inspection, No pedal edema, No swelling Skin Exam: normal color, warm, dry, No rash Final Diagnosis/Problem List - Final Discharge Diagnosis/Problem (1) Small bowel obstruction, partial Status: Acute Assessment & Plan: This appears to be resolved. Repeat imaging no longer shows the bezoar. Patient can follow up with PCP as outpatient Code(s): K56.600 - PARTIAL INTESTINAL OBSTRUCTION, UNSPECIFIED TO CAUSE (2) UTI (urinary tract infection) Status: Acute Assessment & Plan: Patient got IV antibiotics. She was asymptomatic. We will complete the course of antibiotics Code(s): N39.0 - URINARY TRACT INFECTION, SITE NOT SPECIFIED (3) Aortic stenosis Status: Acute Assessment & Plan: Patient has known and sees Paul Dockery for this. Code(s): I35.0 - NONRHEUMATIC AORTIC (VALVE) STENOSIS (4) HTN (hypertension) Status: Acute Assessment & Plan: Will continue on routine home meds for bp. Code(s): I10 - ESSENTIAL (PRIMARY) HYPERTENSION - Discharge Disposition: Home, Self-Care Condition: Stable Prescriptions: New Cefdinir 300 mg PO BID 5 Days #10 capsule Acetaminophen 650 mg [Feverall 650 mg] 650 mg MS Q4H PRN PRN supp.rect PRN Reason: Pain And/Or Fever Ondansetron ODT 4 MG [Zofran Odt 4 mg] 4 mg PO Q6H PRN PRN 4 Days #10 tab.rapdis PRN Reason: Nausea/Vomiting Continue Metformin HCl 500 mg [Glucophage 500 MG] 500 mg PO BIDWM Amlodipine Besylate [Norvasc] 5 mg PO DAILY Losartan/Hydrochlorothiazide [Losartan-Hctz 100-12.5 mg Tab] 1 each PO DAILY [place]-3 Fatty Acids [[place]-3] 1,000 mg PO DAILY Aspirin EC 81 mg [Ecotrin 81 mg] 81 mg PO DAILY Instructions: Small Bowel Obstruction, Urinary Tract Infection, Adult (DC) Follow up with: SEE ROBLES MD [ASSOCIATE STAFF] - Call for Appointment JONAH CANTOR [Primary Care Provider] - 10/28/19 10:30 am
== END 2019-10-19 11:05 | disposition home or self-care (01) | DRG 389 ==
LOC: ED 14:01 → MED SURG 17:44
PROVIDERS: ADMIT Family Medicine; ATTEND Family Medicine
DX: K56.600 Partial intestinal obstruction, unspecified as to cause (principal); N39.0 Urinary tract infection, site not specified; R11.2 Nausea with vomiting, unspecified; E11.9 Type 2 diabetes mellitus without complications; I35.0 Nonrheumatic aortic (valve) stenosis; I10 Essential (primary) hypertension; Z79.899 Other long term (current) drug therapy
CPT/HCPCS: 36000; 36415; 74176; 74177; 80053; 81001; 82150; 83605; 83690; 84484; 85025; 87077; 87086; 87186; 93005; 94760; 96360; 96365; 96374; 96375; 99285; J0696; J1170; J2405; A9270-GY

== ENCOUNTER 2021-09-26 09:59 | Emergency (ER) | payer MEDICARE, OTHER ==
[2021-09-26 10:37] LABS: Absolute Neutrophil Ct (ANC) 5.87 x10^3/uL (1.4-6.9); Basophil (Absolute #) 0.03 x10^3/uL (0-0.4); Eosinophil % 2.4 % (0.00-5.0); Eosinophil (Absolute #) 0.17 x10^3/uL (0-0.5); Hematocrit 38.9 % (35-47); Hemoglobin 12.2 g/dL (12.0-16.0); Lymphocyte (Absolute #) 0.55 x10^3/uL (1.0-4.6); Lymphocytes % 7.8 % (24.0-44.0); Mean Cell Volume 84.9 fL (78-100); Mean Corpuscular Hemoglobin 26.6 pg (26-32); Mean Corpuscular Hgb Concent. 31.4 g/dL (32-36); Mean Platelet Volume 9.9 fL (7.5-11.0); Monocytes % 5.7 % (0.0-12.0); Neutrophil % 83.4 % (36.0-66.0); Platelet Count 250 x10^3/uL (150-450); Red Blood Count 4.58 x10^6/uL (4.1-5.4); Red Cell Distribution Width 14.7 % (11.5-14.0)
[2021-09-26 10:49] LABS: ALBUMIN 3.2 g/dL (3.5-5.0); ALKALINE PHOSPHATASE 109 U/L (38-126); ANION GAP 11.3 MEQ/L (5-15); BLOOD UREA NITROGEN 12 mg/dL (7-17); CHLORIDE 107 mmol/L (98-107); Calcium 8.5 mg/dL (8.4-10.2); Carbon Dioxide 25 mmol/L (22-30); Creatinine 1 0.71 mg/dL (0.52-1.04); EST GLOMERULAR FILTRATION RATE > 60.0 ML/MIN; Glucose 107 mg/dL (74-106); Potassium 3.6 mmol/L (3.5-5.1); SGOT/AST 32 U/L (14-36); SGPT/ALT 30 U/L (0-35); SODIUM 140 mmol/L (137-145); Total Protein 6.1 g/dL (6.3-8.2)
--- NOTE | 2021-09-26 12:14 | ERPHSYRPT ---
- History of Present Illness Source: patient, EMS, other (Son) Exam Limitations: other (Poor historian) Patient Subjective Stated Complaint: PT states "I tested positive for covid last monday and my son thinks I am not eating or drinking, but I think I am." Triage Nursing Assessment: Pt presented alert and oriented X3, skin pwd Pt able to speak in clear full sentences. Pt repeating herself and forgetful. PT stated she cannot remember what the last thing she ate was and stated she did not take her meds this morning. Physician History: 76 yo wf w CV19 x 9days presents per EMS after collapsing this AM. Focal weakness/SPANGLER/Head injury denied. Pt's cough/coryza improving but has generalized lethargy. Fever/dysuria/hematuria/diarrhea/melena are all denied. Timing/Duration: today Severity: mild Modifying Factors: Improves With: movement Associated Symptoms: nausea, cough, malaise, weakness, No vomiting, No abdominal pain, No shortness of breath, No heartburn, No diaphoresis, No chills, No chest pain, No fever, No headaches, No loss of appetite, No rash, No syncope, No seizure Allergies/Adverse Reactions: No Known Drug Allergies Allergy (Verified 10/17/19 14:10) Home Medications: Aspirin EC 81 mg [Ecotrin 81 mg] 81 mg PO DAILY 10/17/19 [History] Atorvastatin Calcium 20 mg PO HS 09/26/21 [History] Clopidogrel Bisulfate [Clopidogrel] 75 mg PO DAILY 09/26/21 [History] Ergocalciferol (Vitamin D2) [Vitamin D2] 50,000 unit PO Q7D 09/26/21 [History] Furosemide 40 mg [Lasix 40 MG] 40 mg PO DAILY 09/26/21 [History] Losartan Potassium 50 mg [Cozaar 50 MG] 50 mg PO DAILY 09/26/21 [History] Meloxicam 7.5 mg PO BID 09/26/21 [History] Potassium Chloride [Klor-Con M10] 10 meq PO DAILY 09/26/21 [History] hydrOXYzine pamoate [Vistaril] 25 mg PO BID 09/26/21 [History] Hx Tetanus, Diphtheria Vaccination/Date Given: No Hx Influenza Vaccination/Date Given: Yes Hx Pneumococcal Vaccination/Date Given: Yes Immunizations Up to Date: Yes Travel Risk - International Travel Have you traveled outside of the country in past 3 weeks: No - Coronavirus Screening Are you exhibiting any of the following symptoms?: Yes Symptoms: Shortness of Breath Close contact with a COVID-19 positive Pt in past 14-21 Days: No - Vaccine Status Have you recieved a Covid-19 vaccination: Yes Alley Cleaner: Unknown - Vaccination Dates Dates if Unknown: 2020 - Review of Systems Constitutional: No Symptoms, Fatigue, Lethargy, Malaise, Weakness Eyes: No Symptoms Ears, Nose, & Throat: No Symptoms, Nose Congestion, Nose Discharge Respiratory: No Symptoms, Cough Cardiac: No Symptoms, No Chest Pain Abdominal/Gastrointestinal: No Symptoms, Nausea Genitourinary Symptoms: No Symptoms Musculoskeletal: No Symptoms Skin: Other (Ulcer R medial ankle) Psychological: No Symptoms Endocrine: No Symptoms Hematologic/Lymphatic: No Symptoms Immunological/Allergic: No Symptoms - Past Medical History Pertinent Past Medical History: Yes Neurological History: No Pertinent History ENT History: No Pertinent History Cardiac History: No Pertinent History Respiratory History: No Pertinent History Endocrine Medical History: Diabetes Type II Musculoskeletal History: Arthritis GI Medical History: Gallbladder Disease History: No Pertinent History Psycho-Social History: No Pertinent History Female Reproductive Disorders: No Pertinent History - Past Surgical History Past Surgical History: Yes Neuro Surgical History: No Pertinent History Cardiac: No Pertinent History Respiratory: No Pertinent History Gastrointestinal: Appendectomy, Cholecystectomy Genitourinary: No Pertinent History Musculoskeletal: No Pertinent History Female Surgical History: No Pertinent History Other Surgical History: elizabeth. appi. neck PARATHYROID REMOVED - Social History Smoking Status: Former smoker Exposure to second hand smoke: No Drug Use: none Patient Lives Alone: Yes Significant Family History: no pertinent family hx - Nursing Vital Signs Nursing Vital Signs: Initial Vital Signs Temperature 97.2 F 09/26/21 10:00 Pulse Rate 63 09/26/21 10:00 Respiratory Rate 22 09/26/21 10:00 Blood Pressure 156/58 09/26/21 10:00 O2 Sat by Pulse Oximetry 99 09/26/21 10:00 Pain Scale Pain Intensity 0 Hypertensive - Physical Exam General Appearance: no apparent distress Eye Exam: PERRL/EOMI, eyes nml inspection Ears, Nose, Throat Exam: normal ENT inspection, TMs normal, moist mucous membranes Neck Exam: normal inspection, non-tender, supple, full range of motion, No meningismus, No mass, No Brudzinski, No Kernig's, No carotid bruit Respiratory Exam: crackles/rales (Rales bases L>R) Cardiovascular Exam: regular rate/rhythm, murmur (2/6 GUERLINE), capillary refill <2 sec Gastrointestinal/Abdomen Exam: soft, normal bowel sounds, No tenderness Back Exam: normal inspection, normal range of motion, No CVA tenderness Extremity Exam: pedal edema (1-2+ nonpitting/Ulcer R medial ankle w mild surrounding erythema) Neurologic Exam: alert, cooperative, cardroom supervisor II-XII nml as tested, normal mood/affect, sensation nml, disoriented (Disoriented to time), No motor deficits, No sensory deficit Skin Exam: normal color, warm, dry Lymphatic Exam: No adenopathy SpO2 Interpretation: normal SpO2: 99 O2 Delivery: Room Air - Course Nursing assessment & vital signs reviewed: Yes EKG Interpreted by Me: RATE (NSR/Rate 78/Prolonged QTc/Old inferior MN/Poor R wave progression) - Radiology Exams Chest X-ray Interpretation: Interpreted by me (Elevation of L hemidiaphragm/Nothing acute) - CT Exams Head CT Interpretation: Tele-radiologist Report (Nothing acute) Ordered Tests: Active Orders 24 hr Category Date Time Status EKG-ER Only STAT Care 09/26/21 10:00 Completed CHEST 1 VIEW (PORTABLE) Stat Exams 09/26/21 10:01 Taken HEAD WITHOUT CONTRAST [CT] Stat Exams 09/26/21 12:23 Ordered CBC W DIFF Stat Lab 09/26/21 10:20 Completed CMP Stat Lab 09/26/21 10:20 Completed Lactic Acid Stat Lab 09/26/21 10:00 Completed TROPONIN Q3H Lab 09/26/21 10:20 Completed TROPONIN Q3H Lab 09/26/21 13:18 Completed Lab/Rad Data: Laboratory Result Diagrams 09/26/21 10:20 09/26/21 10:20 Laboratory Results 09/26/21 09/26/21 09/26/21 Range/Units 13:18 10:20 10:20 WBC (4.0-10.5) x10^3/uL RBC (4.1-5.4) x10^6/uL Hgb (12.0-16.0) g/dL Hct (35-47) % MCV (78-100) fL MCH (26-32) pg MCHC (32-36) g/dL RDW (11.5-14.0) % Plt Count (150-450) x10^3/uL MPV (7.5-11.0) fL Gran % (36.0-66.0) % Immature Gran % (Auto) (0.00-0.4) % Nucleat RBC Rel Count (0.00-0.1) % Eos # (Auto) (0-0.5) x10^3/uL Immature Gran # (Auto) (0.00-0.03) x10^3u/L Absolute Lymphs (auto) (1.0-4.6) x10^3/uL Absolute Monos (auto) (0.0-1.3) x10^3/uL Absolute Nucleated RBC (0.00-0.01) x10^3u/L Lymphocytes % (24.0-44.0) % Monocytes % (0.0-12.0) % Eosinophils % (0.00-5.0) % Basophils % (0.0-0.4) % Absolute Granulocytes (1.4-6.9) x10^3/uL Basophils # (0-0.4) x10^3/uL Sodium 140 (137-145) mmol/L Potassium 3.6 (3.5-5.1) mmol/L Chloride 107 (98-107) mmol/L Carbon Dioxide 25 (22-30) mmol/L Anion Gap 11.3 (5-15) MEQ/L BUN 12 (7-17) mg/dL Creatinine 0.71 (0.52-1.04) mg/dL Estimated GFR > 60.0 ML/MIN Glucose 107 H (74-106) mg/dL Lactic Acid (0.4-2.0) Calcium 8.5 (8.4-10.2) mg/dL Total Bilirubin 0.70 (0.2-1.3) mg/dL AST 32 (14-36) U/L ALT 30 (0-35) U/L Alkaline Phosphatase 109 (38-126) U/L Troponin I < 0.012 < 0.012 (0.000-0.034) ng/mL Serum Total Protein 6.1 L (6.3-8.2) g/dL Albumin 3.2 L (3.5-5.0) g/dL Slides for Path Review 09/26/21 09/26/21 Range/Units 10:20 10:00 WBC 7.0 (4.0-10.5) x10^3/uL RBC 4.58 (4.1-5.4) x10^6/uL Hgb 12.2 (12.0-16.0) g/dL Hct 38.9 (35-47) % MCV 84.9 (78-100) fL MCH 26.6 (26-32) pg MCHC 31.4 L (32-36) g/dL RDW 14.7 H (11.5-14.0) % Plt Count 250 (150-450) x10^3/uL MPV 9.9 (7.5-11.0) fL Gran % 83.4 H (36.0-66.0) % Immature Gran % (Auto) 0.3 (0.00-0.4) % Nucleat RBC Rel Count 0.0 (0.00-0.1) % Eos # (Auto) 0.17 (0-0.5) x10^3/uL Immature Gran # (Auto) 0.02 (0.00-0.03) x10^3u/L Absolute Lymphs (auto) 0.55 L (1.0-4.6) x10^3/uL Absolute Monos (auto) 0.40 (0.0-1.3) x10^3/uL Absolute Nucleated RBC 0.00 (0.00-0.01) x10^3u/L Lymphocytes % 7.8 L (24.0-44.0) % Monocytes % 5.7 (0.0-12.0) % Eosinophils % 2.4 (0.00-5.0) % Basophils % 0.4 (0.0-0.4) % Absolute Granulocytes 5.87 (1.4-6.9) x10^3/uL Basophils # 0.03 (0-0.4) x10^3/uL Sodium (137-145) mmol/L Potassium (3.5-5.1) mmol/L Chloride (98-107) mmol/L Carbon Dioxide (22-30) mmol/L Anion Gap (5-15) MEQ/L BUN (7-17) mg/dL Creatinine (0.52-1.04) mg/dL Estimated GFR ML/MIN Glucose (74-106) mg/dL Lactic Acid 0.6 (0.4-2.0) Calcium (8.4-10.2) mg/dL Total Bilirubin (0.2-1.3) mg/dL AST (14-36) U/L ALT (0-35) U/L Alkaline Phosphatase (38-126) U/L Troponin I (0.000-0.034) ng/mL Serum Total Protein (6.3-8.2) g/dL Albumin (3.5-5.0) g/dL Slides for Path Review YES - Progress Progress: improved Progress Note: 09/26/21 17:18 Wells Criteria 1.3% chance for PE Pt without focal weakness and with good sats during entire stay. Pt most likely has mild generalized lethargy due to CV19. She is already taking Paxlovid. 09/26/21 17:19 Counseled pt/family regarding: lab results, diagnosis, need for follow-up, rad results - Departure Departure Disposition: Home Clinical Impression: COVID-19 Condition: Stable Critical Care Time: No Referrals: JONAH GODDARD [Primary Care Provider] - Follow up/PCP as directed Instructions: Coronavirus Disease 2019 (COVID-19) (DC) Additional Instructions: Rest/fluids/Motrin/Tylenol Get a pulse oximeter and monitor oxygen saturation 2-3 times a day Return to ER for persistent oxygen saturation <90%
[2021-09-26 13:05] VITALS: PULSE 74
[2021-09-26 14:08] VITALS: BP 182/88
[2021-09-26 14:55] LABS: Slide Review 1 YES
[2021-09-26 17:22] VITALS: O2SAT 99
--- NOTE | 2021-09-26 19:52 | XRAY ---
Indication: Covid 19. Comparison: None Portable chest clear with left hemidiaphragm elevation. Heart not enlarged with mitral valve replacement surgery. A few small bilateral hilar calcified nodes. Bony thorax intact with mild osteopenia, degenerative changes, and mild dextroscoliosis. Impression: Nonacute chest with chronic features.
--- NOTE | 2021-09-26 19:54 | XRAY ---
Indication: Multiple falls. Multiple contiguous axial images obtained through the head without contrast. Comparison: None Age-appropriate global atrophy and mild periventricular degenerative micro-ischemia bilaterally. Remote lacunar infarct left basal ganglia. No acute intracranial hemorrhage, abnormal extra-axial fluid collection, or mass effect. Fourth ventricle is midline without hydrocephalus. Bony calvarium intact. New complete opacification both ethmoid sinuses with mild left maxillary sinus mucosal thickening/fluid leveling. Mastoid air cells are clear. Impression: Nonacute senile brain with remote lacunar infarct left basal ganglia. Incidental paranasal sinus disease. Comment: Preliminary interpretation made by [facility]. No critical discrepancy.
== END 2021-09-26 14:16 | disposition home or self-care (01) ==
LOC: ED 09:59
DX: U07.1 COVID-19 (principal); R55 Syncope and collapse; R53.83 Other fatigue; R05.9 Cough, unspecified; E11.9 Type 2 diabetes mellitus without complications; Z79.02 Long term (current) use of antithrombotics/antiplatelets; Z79.899 Other long term (current) drug therapy
CPT/HCPCS: 36415; 70450; 71045; 80053; 83605; 84484; 85025; 93005; 99284

== ENCOUNTER 2024-02-05 17:28 | Emergency (ER) | payer MEDICARE, OTHER ==
[2024-02-05 18:26] VITALS: TEMP 98.2; O2SAT 100
--- NOTE | 2024-02-05 18:55 | ERPHSYRPT ---
- History of Present Illness Source: patient Exam Limitations: no limitations Patient Subjective Stated Complaint: C/O BLE edema. Home Health Nurse noticed increased edema today. Triage Nursing Assessment: Patient ambulated back to ER with her roller walker and a slow, steady gait. She is alert and oriented with periods of confusion; diagnosis of alzheimers. Anxious. BLE are swollen with some blistering noted; red skin. Hx Tetanus, Diphtheria Vaccination/Date Given: Yes Hx Influenza Vaccination/Date Given: Yes Hx Pneumococcal Vaccination/Date Given: Yes Immunizations Up to Date: Yes <SUZIE PARK - Last Filed: 02/05/24 18:50> <DWAYNE BONILLA - Last Filed: 02/05/24 19:36> - History of Present Illness Physician History: Patient has chronic lower extremity edema bilaterally. She had cellulitis a few weeks ago. She is supposed to be on leg wraps and compression stockings and she has not been using them as directed. She had some erythema around her legs and the nurse practitioner was worried it was cellulitis. It looks more like stasis dermatitis to me. There is some blistering and some weeping. Like I said she has not been using her leg wraps. She does not have any chest congestion or dyspnea. Nothing really makes his symptoms better or worse. She has had no fever chills or infectious type symptoms. (SUZIE PARK) Allergies/Adverse Reactions: No Known Drug Allergies Allergy (Verified 02/05/24 18:04) Home Medications: Aspirin EC 81 mg [Ecotrin 81 mg] 81 mg PO DAILY 10/17/19 [History] Atorvastatin Calcium 20 mg PO HS 09/26/21 [History] Ergocalciferol (Vitamin D2) [Vitamin D2] 50,000 unit PO Q7D 09/26/21 [History] Furosemide 40 mg [Lasix 40 MG] 80 mg PO DAILY 09/26/21 [History] Losartan Potassium 50 mg [Cozaar 50 MG] 50 mg PO DAILY 09/26/21 [History] Potassium Chloride [Klor-Con M10] 10 meq PO BID 09/26/21 [History] Acetaminophen 500 mg [Tylenol Extra Strength 500 mg] 500 mg PO BID 02/05/24 [History] Donepezil HCl 10 mg [Aricept 10 MG] 10 mg PO HS 02/05/24 [History] Sertraline HCl 50 mg [Zoloft 50 mg Tablet] 50 mg PO DAILY 02/05/24 [History] Travel Risk - International Travel Have you traveled outside of the country in past 3 weeks: No - Emerging Infectious Disease Are you exhibiting symptoms associated with any current EIDs: No <SUZIE PARK - Last Filed: 02/05/24 18:50> - Review of Systems Constitutional: No Symptoms Eyes: No Symptoms Ears, Nose, & Throat: No Symptoms Respiratory: No Symptoms Cardiac: No Symptoms Abdominal/Gastrointestinal: No Symptoms Genitourinary Symptoms: No Symptoms Musculoskeletal: Other (Bilateral lower extremity edema.) Skin: No Symptoms Neurological: No Symptoms Psychological: No Symptoms Endocrine: No Symptoms <SUZIE PARK - Last Filed: 02/05/24 18:50> - Past Medical History Pertinent Past Medical History: Yes Neurological History: No Pertinent History ENT History: No Pertinent History Cardiac History: Congestive Heart Failure, High Cholesterol, Hypertension Respiratory History: No Pertinent History Endocrine Medical History: Diabetes Type II Musculoskeletal History: Arthritis GI Medical History: Gallbladder Disease History: No Pertinent History Psycho-Social History: Depression Female Reproductive Disorders: No Pertinent History Other Medical History: Alarm Installation Technician: Dr. Dockery - Past Surgical History Past Surgical History: Yes Neuro Surgical History: No Pertinent History Cardiac: Valve Replacement Respiratory: No Pertinent History Gastrointestinal: Appendectomy, Cholecystectomy Genitourinary: No Pertinent History Musculoskeletal: No Pertinent History Female Surgical History: No Pertinent History Other Surgical History: neck PARATHYROID REMOVED Significant Family History: no pertinent family hx - Social History Smoking Status: Former smoker Exposure to second hand smoke: No Drug Use: none Patient Lives Alone: Yes - Social Determinants of Health Will the patient participate in the screening: Declined to provide <SUZIE PARK - Last Filed: 02/05/24 18:50> - Physical Exam General Appearance: no apparent distress Eyes, Ears, Nose, Throat Exam: normal ENT inspection Cardiovascular/Respiratory Exam: chest non-tender, normal breath sounds, no respiratory distress, rhonchi (Mild crackles in the bases) Gastrointestinal/Abdominal Exam: non-tender, soft Back Exam: normal inspection, normal range of motion Legs Exam: bilateral leg: non-tender, normal inspection, normal range of motion Ankle Exam: bilateral ankle: swelling (4+ pitting edema. There is some weeping of serous fluid. It is not appear to be infected. There are some slight erythema.) Foot Exam: bilateral foot: swelling Neuro/Tendon Exam: normal sensation, normal motor functions, normal tendon functions Mental Status Exam: alert, oriented x 3 Skin Exam: normal color, warm, dry SpO2: 100 <SUZIE PARK S. - Last Filed: 02/05/24 18:50> - Nursing Vital Signs Nursing Vital Signs: Initial Vital Signs Temperature 98.2 F 02/05/24 18:00 Pulse Rate 90 02/05/24 18:00 Respiratory Rate 20 02/05/24 18:00 Blood Pressure 162/85 02/05/24 18:00 O2 Sat by Pulse Oximetry 100 02/05/24 18:00 Pain Scale Pain Intensity 0 Ordered Tests: Active Orders 24 hr Category Date Time Status EKG-ER Only STAT Care 02/05/24 18:31 Active CHEST 1 VIEW (PORTABLE) Stat Exams 02/05/24 18:52 Taken BNPII [NT PRO BNPII] Stat Lab 02/05/24 18:50 Completed CBC W DIFF Stat Lab 02/05/24 18:50 Completed CMP Stat Lab 02/05/24 18:50 Completed MAGNESIUM Stat Lab 02/05/24 18:50 Completed Lab/Rad Data: Laboratory Result Diagrams 02/05/24 18:50 02/05/24 18:50 Laboratory Results 02/05/24 02/05/24 02/05/24 Range/Units 18:50 18:50 18:50 WBC 7.2 (3.98-10.04) x10^3/uL RBC 4.61 (3.93-5.22) x10^6/uL Hgb 12.1 (11.2-15.7) g/dL Hct 39.5 (34.1-44.9) % MCV 85.7 (79.4-94.8) fL MCH 26.2 (25.6-32.2) pg MCHC 30.6 L (32.2-35.5) g/dL RDW 15.2 H (11.7-14.4) % Plt Count 255 (182-369) x10^3/uL MPV 10.6 (9.4-12.3) fL Gran % 74.6 H (34.0-71.1) % Immature Gran % (Auto) 0.4 (0.001-0.429) % Nucleat RBC Rel Count 0.0 (0.00-0.2) % Eos # (Auto) 0.16 (0.04-0.36) x10^3/uL Immature Gran # (Auto) 0.03 (0.001-0.031) x10^3u/L Absolute Lymphs (auto) 1.11 L (1.18-3.74) x10^3/uL Absolute Monos (auto) 0.46 (0.24-0.86) x10^3/uL Absolute Nucleated RBC 0.00 (0.00-0.012) x10^3u/L Lymphocytes % 15.4 L (19.3-51.7) % Monocytes % 6.4 (4.7-12.5) % Eosinophils % 2.2 (0.7-5.8) % Basophils % 1.0 (0.1-1.2) % Absolute Granulocytes 5.39 (1.56-6.13) x10^3/uL Basophils # 0.07 (0.01-0.08) x10^3/uL Sodium 146 H (135-145) mmol/L Potassium 4.0 (3.5-5.1) mmol/L Chloride 111 H (98-107) mmol/L Carbon Dioxide 22 (22-30) mmol/L Anion Gap 16.3 H (5-15) MEQ/L BUN 16 (7-17) mg/dL Creatinine 0.86 (0.52-1.04) mg/dL Estimated GFR 69.1 ML/MIN Glucose 110 H (74-106) mg/dL Calcium 9.3 (8.4-10.2) mg/dL Magnesium 1.9 (1.6-2.3) mg/dL Total Bilirubin 0.60 (0.2-1.3) mg/dL AST 30 (14-36) U/L ALT 18 (0-35) U/L Alkaline Phosphatase 80 (38-126) U/L NT-Pro-B Natriuret Pep 323 (<300) pg/mL Serum Total Protein 6.8 (6.3-8.2) g/dL Albumin 4.0 (3.5-5.0) g/dL - Progress Progress: unchanged Counseled pt/family regarding: lab results, diagnosis, need for follow-up, rad results <DWAYNE BONILLA - Last Filed: 02/05/24 19:36> - Progress Progress Note: 02/05/24 19:33 This patient was checked out to me at shift change [address] Park. I interpreted the patient's laboratory data results. Based on the laboratory data results, the patient has no acute or emergent medical issue. I interpreted the patient's preliminary chest x-ray results. There are no acute, cardiopulmonary processes. The patient has been noncompliant with her bilateral lower extremity lab wraps. I agree with Dr. Park that this appears to be more like venous stasis dermatitis with some blistering. Her BNP is normal. Her white count and differential are normal. She is afebrile. We will hold off on providing her with antibiotics and have her follow-up with her primary care provider tomorrow, 02/06/2024, to be seen in the next 2 to 3 days as well as arranging a referral to either podiatry or wound care/management (DWAYNE BONILLA) Medical Desision Making - Independent Historian Additional History obtained from: Family - Diagnostic Testing Diagnostic test were ordered, analyzed, and reviewed by me: Yes Radiological Interpretation: Interpreted by me - Risk of complications Low Risk: Low risk of morbidity from additional dx testing or treatment <DWAYNE BONILLA - Last Filed: 02/05/24 19:36> <SUZIE PARK - Last Filed: 02/05/24 18:50> - Departure Departure Disposition: Home Critical Care Time: No <DWAYNE BONILLA - Last Filed: 02/05/24 19:36> - Departure Clinical Impression: Bilateral lower extremity edema, Venous stasis dermatitis of both lower extremities Condition: Stable Referrals: JUAN MELENDREZ DO [Primary Care Provider] - Follow up/PCP as directed Additional Instructions: Keep bilateral lower extremity elevated above the level of the heart. Be compliant with wrapping of your bilateral lower extremities as you were told to do. Call your primary care provider tomorrow, 02/06/2024, to make arrangements to be seen in the next 2 to 3 days as well as arranging outpatient management of your chronic lower extremity swelling with podiatry or wound care management
[2024-02-05 19:01] LABS: Absolute Neutrophil Ct (ANC) 5.39 x10^3/uL (1.56-6.13); Basophil (Absolute #) 0.07 x10^3/uL (0.01-0.08); Eosinophil % 2.2 % (0.7-5.8); Eosinophil (Absolute #) 0.16 x10^3/uL (0.04-0.36); Hematocrit 39.5 % (34.1-44.9); Hemoglobin 12.1 g/dL (11.2-15.7); IMMATURE GRAN # 0.03 x10^3u/L (0.001-0.031); IMMATURE GRAN % 0.4 % (0.001-0.429); Lymphocyte (Absolute #) 1.11 x10^3/uL (1.18-3.74); Lymphocytes % 15.4 % (19.3-51.7); Mean Cell Volume 85.7 fL (79.4-94.8); Mean Corpuscular Hemoglobin 26.2 pg (25.6-32.2); Mean Corpuscular Hgb Concent. 30.6 g/dL (32.2-35.5); Mean Platelet Volume 10.6 fL (9.4-12.3); Monocyte (Absolute #) 0.46 x10^3/uL (0.24-0.86); Monocytes % 6.4 % (4.7-12.5); Neutrophil % 74.6 % (34.0-71.1); Platelet Count 255 x10^3/uL (182-369); Red Blood Count 4.61 x10^6/uL (3.93-5.22); Red Cell Distribution Width 15.2 % (11.7-14.4); White Blood Count 7.2 x10^3/uL (3.98-10.04)
[2024-02-05 19:15] LABS: ANION GAP 16.3 MEQ/L (5-15); BILIRUBIN,TOTAL 0.6 mg/dL (0.2-1.3); Calcium 9.3 mg/dL (8.4-10.2); Creatinine 1 0.86 mg/dL (0.52-1.04); EST GLOMERULAR FILTRATION RATE 69.1 ML/MIN; MAGNESIUM 1.9 mg/dL (1.6-2.3); Total Protein 6.8 g/dL (6.3-8.2)
[2024-02-05 20:05] VITALS: BP 174/77; PULSE 64; RESP 22
--- NOTE | 2024-02-06 08:44 | XRAY ---
Indication: CHF. Comparison: September 26, 2021 Portable chest inflated and clear. Heart not enlarged for AP portable technique again with mitral valve replacement. Bony thorax intact again with osteopenia, degenerative changes, and dextroscoliosis. Impression: Nonacute chest with chronic features.
== END 2024-02-05 20:13 | disposition home or self-care (01) ==
LOC: ED 17:28
DX: I87.2 Venous insufficiency (chronic) (peripheral) (principal); R60.0 Localized edema; E78.5 Hyperlipidemia, unspecified; I11.0 Hypertensive heart disease with heart failure; I50.9 Heart failure, unspecified; E11.9 Type 2 diabetes mellitus without complications; Z79.899 Other long term (current) drug therapy
CPT/HCPCS: 36415; 71045; 80053; 83735; 83880; 85025; 99283